=== PATIENT | male | born 1945 | race Caucasian/White ===

== ENCOUNTER 2025-03-27 04:36 | Inpatient (IN) | payer MEDICARE, SELFPAY ==
[2025-03-26] VITALS (7 sets, daily range): BP systolic 109–136; BP diastolic 48–65; BMI 29.5
--- NOTE | 2025-03-26 19:01 | ED.GENMED ---
History of Present Illness
<Marek Dudley PA-C - Last Filed: 03/28/25 18:14>
General
Chief Complaint: Weakness
Source: patient
Exam Limitations: none
Time Seen by Provider: 03/26/25 18:48
History of Present Illness
History of Present Illness:
79-year-old male presents complaining of generalized weakness and chills starting last night. He was admitted at [facility] from 02 28-03 08 and discharged to rehab. He was found to have significantly elevated liver functions at [facility] and was due for an ERCP. This was to be scheduled as an outpatient. He has been home since discharge from rehab however overnight he developed weakness and chills. He typically ambulates on his own without any assistance but today he has
required significant assistance. He notes a slight cough. Prior history of cholecystectomy. No other complaints
Phy Exam
<Marek Dudley PA-C - Last Filed: 03/28/25 18:14>
Physical Exam
Physical Exam:
General Ill-appearing male no acute respiratory distress HEENT: Normal cephalic atraumatic mucosa dry
Heart: Tachycardic but regular
Lungs: Clear no wheeze abdomen is soft nontender
Extremities: No cyanosis
Skin: Slightly pale or mildly jaundiced
Neurologic exam: Alert oriented answering questions appropriately no facial asymmetry
Ext: no cyanosis
Course
<Marek Dudley PA-C - Last Filed: 03/28/25 18:14>
Orders/Labs/Results
Orders:
Orders
03/26/25 18:26
Electrocardiogram (*1) Urgent
Reason for Study: Vertigo / Dizzy
EKG- Treatment ONCE
03/26/25 19:02
CR Chest Portable - 1 View Urgent
Comment:
Reason For Exam: fatigue fever
Reason Study Needs to be Portable: Patient Unstable
03/26/25 19:17
COVID-19 Antigen Urgent
Source: Nasal Swab
Complete Blood Count/With Diff Urgent
Comprehensive Metabolic Panel Urgent
Lactic Acid Q4H
Comment: CANCEL 2nd LACTIC ACID IF 1st LACTIC ACID IS LESS THAN 2
Lipase Urgent
Blood Culture Q30M
JANELLE Source: Blood/Venous
Specimen Description:
Influenza A+B Rapid Molecular Urgent
JANELLE Source: Nasal Swab
Specimen Description:
03/26/25 19:31
Piperacillin/Tazo 3.375 Gram [Zosyn] 3.375 gram in 50 ml IV NOW
03/26/25 20:14
Blood Culture Q30M
JANELLE Source: Blood/Venous
Specimen Description:
03/26/25 20:20
Acetaminophen [Tylenol] 1,000 mg PO NOW STA
03/26/25 20:23
0.9% Sodium Chloride 1000 ml [Nss] 1,000 ml IV BOLUS
03/26/25 21:27
Urinalysis Reflex To Culture Urgent
Date Specimen was Collected: 03/26/25
Time Specimen was Collected: 19:40
03/26/25 21:38
CT Abd/pelvis W Iv Cont Urgent
Comment:
Reason For Exam: pain, fever
03/27/25 01:16
Urine Microscopic Reflex Cult Urgent
03/27/25 04:09
Admit/Transfer Patient As Directed
Co-Sign Provider:
Level of Care: Inpatient admission
Assign to:: Medical/Surgical
Physician / Group: Raissa
Diagnosis: Fever
Reason for Hospitalization: fever with transaminitis
Expected length of stay greater than two midnights?: Yes
ELOS- Estimated Length of Stay in days: 2
I certify the patient meets the requirements for IP care: Yes
PRN Pain Medication Management As Directed
May give lesser potent ordered pain med per pt: Yes
preference::
Protocol:: Medication orders for pain may be administered in a
manner that supports deferring to patient preference
when the pt is:
- Requesting an ordered lesser potent pain medication.
Least to most potent pain medications are defined
as: acetaminophen < NSAID < tramadol < opioids
(morphine, oxycodone, hydromorphone).
- Requesting a lesser dose of the same medication IF
ORDERED.
- Requesting a less intrusive route of administration
if both routes are prescribed by the provider (PO <
IV).
03/27/25 04:10
Code Status As Directed
Resuscitation Status: Full Code
03/27/25 04:21
Piperacillin/Tazo 3.375 Gram [Zosyn] 3.375 gram in 50 ml IV NOW
03/27/25 Breakfast
NPO
Allow oral meds: Yes
Allow clear liquids: Sips of Clears
03/27/25 06:03
Acetaminophen [Tylenol] 650 mg PO Q4HPRN PRN
Bisacodyl [Dulcolax] 10 mg RECTAL [id number] PRN
Docusate W/Senna [Senokot-S] 1 tablet PO BIDPRN PRN
Lactated Ringers [Lr] 1,000 ml IV 75 mls/hr
Ondansetron Injectable [Zofran] 4 mg IV Q6HPRN PRN
Polyethylene Glycol Powder [Miralax] 17 grams PO DAILYPRN PRN
03/27/25 06:03
Activity As Directed
Activity Level: With Assistance
Vital Signs As Directed
Frequency: Per unit guidelines
Pulse Ox/spot Check [RESP] Routine
Quantity: 1
DX Deep Vein Thrombosis Video Routine
03/27/25 08:00
Aspirin Low Dose EC [Aspir Low (Enteric Coated)] 81 mg PO DAILY
Carvedilol [Coreg] 25 mg PO Q12H
Citalopram [Celexa] 20 mg PO DAILY
03/27/25 11:30
Piperacillin/Tazo 3.375 Gram [Zosyn] 3.375 gram in 50 ml IV Q6
03/27/25 18:00
Enoxaparin Sodium [Lovenox] 40 mg SC QPM
03/27/25 22:00
Trazodone [Desyrel] 100 mg PO HS
03/28/25 08:20
Basic Metabolic Panel IN AM
Complete Blood Count/No Diff IN AM
Magnesium IN AM
Abnormal Lab Results
03/26/25 03/27/25
19:17 01:16
RBC 3.67 L 10^6/uL
(4.70-6.10)
Hgb 12.6 L g/dL
(13.0-18.0)
Hct 37.4 L %
(39.0-52.0)
MCV 101.9 H fL
(80.0-94.0)
MCH 34.3 H pg
(27.0-31.0)
Absolute Lymphs (auto) 0.3 L 10^3/uL
(1.2-3.4)
Neutrophils % 89.4 H %
(42.2-75.2)
Lymphocytes % 4.1 L %
(20.5-51.1)
BUN 21 H mg/dl
(9-20)
Glucose 178 H mg/dl
(70-99)
Total Bilirubin 4.2 H mg/dl
(0.2-1.3)
AST 207 H U/L
(17-59)
ALT 129 H U/L
(0-50)
Alkaline Phosphatase 437 H U/L
(38-126)
Urine Bilirubin 1+ A
(Negative)
Urine Urobilinogen 3+ A
(Neg - 1+)
Urine Glucose 4+ A
(Negative)
Urine Albumin (Reflex) 1+ A
(Neg - Trace)
03/26/25 19:17
03/26/25 19:17
Vital Signs
Initial and Last Documented VS:
Initial Vital Signs
Temp Pulse Resp BP Pulse Ox
100.1 F 105 20 132/64 93
03/26/25 18:11 03/26/25 18:11 03/26/25 18:11 03/26/25 18:11 03/26/25 18:11
Last Documented Vital Signs
Temp Pulse Resp BP Pulse Ox
97.5 F 61 18 147/75 95
03/28/25 18:10 03/28/25 18:10 03/28/25 18:10 03/28/25 18:10 03/28/25 18:10
<Gabriela Recinos MD - Last Filed: 03/26/25 20:56>
Orders/Labs/Results
Orders:
Orders
03/26/25 18:26
Electrocardiogram (*1) Urgent
Reason for Study: Vertigo / Dizzy
EKG- Treatment ONCE
03/26/25 19:02
CR Chest Portable - 1 View Urgent
Comment:
Reason For Exam: fatigue fever
Reason Study Needs to be Portable: Patient Unstable
03/26/25 19:17
COVID-19 Antigen Urgent
Source: Nasal Swab
Complete Blood Count/With Diff Urgent
Comprehensive Metabolic Panel Urgent
Lactic Acid Q4H
Comment: CANCEL 2nd LACTIC ACID IF 1st LACTIC ACID IS LESS THAN 2
Lipase Urgent
Blood Culture Q30M
JANELLE Source: Blood/Venous
Specimen Description:
Influenza A+B Rapid Molecular Urgent
JANELLE Source: Nasal Swab
Specimen Description:
03/26/25 19:31
Piperacillin/Tazo 3.375 Gram [Zosyn] 3.375 gram in 50 ml IV NOW
03/26/25 20:14
Blood Culture Q30M
JANELLE Source: Blood/Venous
Specimen Description:
03/26/25 20:20
Acetaminophen [Tylenol] 1,000 mg PO NOW STA
03/26/25 20:23
0.9% Sodium Chloride 1000 ml [Nss] 1,000 ml IV BOLUS
03/26/25 21:27
Urinalysis Reflex To Culture Urgent
Date Specimen was Collected: 03/26/25
Time Specimen was Collected: 19:40
03/26/25 21:38
CT Abd/pelvis W Iv Cont Urgent
Comment:
Reason For Exam: pain, fever
03/27/25 01:16
Urine Microscopic Reflex Cult Urgent
03/27/25 04:09
Admit/Transfer Patient As Directed
Co-Sign Provider:
Level of Care: Inpatient admission
Assign to:: Medical/Surgical
Physician / Group: Saeidwysandra
Diagnosis: Fever
Reason for Hospitalization: fever with transaminitis
Expected length of stay greater than two midnights?: Yes
ELOS- Estimated Length of Stay in days: 2
I certify the patient meets the requirements for IP care: Yes
PRN Pain Medication Management As Directed
May give lesser potent ordered pain med per pt: Yes
preference::
Protocol:: Medication orders for pain may be administered in a
manner that supports deferring to patient preference
when the pt is:
- Requesting an ordered lesser potent pain medication.
Least to most potent pain medications are defined
as: acetaminophen < NSAID < tramadol < opioids
(morphine, oxycodone, hydromorphone).
- Requesting a lesser dose of the same medication IF
ORDERED.
- Requesting a less intrusive route of administration
if both routes are prescribed by the provider (PO <
IV).
03/27/25 04:10
Code Status As Directed
Resuscitation Status: Full Code
03/27/25 04:21
Piperacillin/Tazo 3.375 Gram [Zosyn] 3.375 gram in 50 ml IV NOW
03/27/25 Breakfast
NPO
Allow oral meds: Yes
Allow clear liquids: Sips of Clears
03/27/25 06:03
Acetaminophen [Tylenol] 650 mg PO Q4HPRN PRN
Bisacodyl [Dulcolax] 10 mg RECTAL [id number] PRN
Docusate W/Senna [Senokot-S] 1 tablet PO BIDPRN PRN
Lactated Ringers [Lr] 1,000 ml IV 75 mls/hr
Ondansetron Injectable [Zofran] 4 mg IV Q6HPRN PRN
Polyethylene Glycol Powder [Miralax] 17 grams PO DAILYPRN PRN
03/27/25 06:03
Activity As Directed
Activity Level: With Assistance
Vital Signs As Directed
Frequency: Per unit guidelines
Pulse Ox/spot Check [RESP] Routine
Quantity: 1
DX Deep Vein Thrombosis Video Routine
03/27/25 08:00
Aspirin Low Dose EC [Aspir Low (Enteric Coated)] 81 mg PO DAILY
Carvedilol [Coreg] 25 mg PO Q12H
Citalopram [Celexa] 20 mg PO DAILY
03/27/25 11:30
Piperacillin/Tazo 3.375 Gram [Zosyn] 3.375 gram in 50 ml IV Q6
03/27/25 18:00
Enoxaparin Sodium [Lovenox] 40 mg SC QPM
03/27/25 22:00
Trazodone [Desyrel] 100 mg PO HS
03/28/25 08:20
Basic Metabolic Panel IN AM
Complete Blood Count/No Diff IN AM
Magnesium IN AM
Abnormal Lab Results
03/26/25 03/27/25
19:17 01:16
RBC 3.67 L 10^6/uL
(4.70-6.10)
Hgb 12.6 L g/dL
(13.0-18.0)
Hct 37.4 L %
(39.0-52.0)
MCV 101.9 H fL
(80.0-94.0)
MCH 34.3 H pg
(27.0-31.0)
Absolute Lymphs (auto) 0.3 L 10^3/uL
(1.2-3.4)
Neutrophils % 89.4 H %
(42.2-75.2)
Lymphocytes % 4.1 L %
(20.5-51.1)
BUN 21 H mg/dl
(9-20)
Glucose 178 H mg/dl
(70-99)
Total Bilirubin 4.2 H mg/dl
(0.2-1.3)
AST 207 H U/L
(17-59)
ALT 129 H U/L
(0-50)
Alkaline Phosphatase 437 H U/L
(38-126)
Urine Bilirubin 1+ A
(Negative)
Urine Urobilinogen 3+ A
(Neg - 1+)
Urine Glucose 4+ A
(Negative)
Urine Albumin (Reflex) 1+ A
(Neg - Trace)
03/26/25 19:17
03/26/25 19:17
Vital Signs
Initial and Last Documented VS:
Initial Vital Signs
Temp Pulse Resp BP Pulse Ox
100.1 F 105 20 132/64 93
03/26/25 18:11 03/26/25 18:11 03/26/25 18:11 03/26/25 18:11 03/26/25 18:11
Last Documented Vital Signs
Temp Pulse Resp BP Pulse Ox
97.5 F 61 18 147/75 95
03/28/25 18:10 03/28/25 18:10 03/28/25 18:10 03/28/25 18:10 03/28/25 18:10
<Marek Dudley PA-C - Last Filed: 03/28/25 18:14>
MDM/Problems Addressed
Differential Diagnosis Includes:
Patient here with generalized weakness and chills. Oral temperature out from 100.1. Will check rectal temperature. Consider underlying infectious source. He has known issues with his biliary ducts and was due for an ERCP. Will obtain CT of the
abdomen chest x-ray COVID flu urinalysis blood cultures and lactic.
<Marek Dudley PA-C - Last Filed: 03/28/25 18:14>
*Pulse Oximetry
SaO2: 95
Oxygen Mode of Delivery: Room air
Patient hypoxic: no
*Critical Care Note
Total Time (30-74mins, 75-104mins- exclusive of procedures): Not Applicable
<Marek Dudley PA-C - Last Filed: 03/28/25 18:14>
Update Note
Update Note:
Chest x-ray, COVID, flu, urinalysis negative. CT reviewed demonstrates dilated intra and extrahepatic biliary ducts. 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 I spoke with our GI team, Dr. Jaime who recommend he gets transferred to ERCP
capable facility. I spoke with [facility] as well as hospitalist. The hospitalist was able to except the patient however there is no beds available at this moment. There will be any beds available overnight. Will
admit to this hospital
ED Attending Note
<Marek Dudley PA-C - Last Filed: 03/28/25 18:14>
-
Portions of this chart may have been created with voice recognition software.� Occasional wrong word or��sound alike� substitutions may have occurred due to the inherent limitations of voice recognition software.
<Gabriela Recinos MD - Last Filed: 03/26/25 20:56>
ED Attending Note
Patient seen and examined by attending physician: Yes
I performed the substantive portion of visit, reviewed & personally made and approve the management plan that is documented in note by myself or RONNY.: Yes
ED Attending Note:
79-year-old male presents emergency department with reported weakness generalized, looking more yellow than usual, and rigors. Patient had a recent hospitalization at [facility] at which time he was noted to have ductal dilatation and he was
recommended to have an ERCP but did not have 1. As per his family he has been generally weak since discharge but got acutely worse today. Patient denies abdominal pain, vomiting, chest pain, shortness of breath, urinary symptoms. On exam, patient
noted to be jaundiced and overall fatigued. Abdomen is soft and nontender, not actively vomiting. Heart regular rate and rhythm, no respiratory distress. Studies from [facility] reviewed, CAT scan from March 07 shows 'moderate intra and
extrahepatic biliary ductal dilatation and main pancreatic ductal dilatation without obstructing mass or calculus. Recommend evaluation with ERCP to rule out an occult ampullary mass.abx started with concern possibly ascending cholangitis (although
no abd pain), awaiting CT. bp stable.
Discharge Plan
Departure
Patient Disposition: Admit
Date of Disposition: 03/27/25
Time of Disposition: 03:15
Presentation/result/management discussed w/ accepting MD/DO: Hospitalist
Discharge Problem:
Fever
Interventions
Interventions:
*General Assessment Last Done: 03/26/25 20:00
*Neglect/Abuse Screening Last Done: 03/26/25 20:00
*ED COVID-19 Vaccine History Last Done: 03/26/25 20:00
*ED Influenza Vaccine History Last Done: 03/26/25 20:00
[facility] Fall Risk Assessment Tool Last Done: 03/27/25 08:00
*Risk Screen - Suicide (C-SSRS) Last Done: 03/26/25 20:00
*Nursing Disposition Last Done: 03/27/25 17:40
ED- Cardiac Assessment Last Done: 03/26/25 20:00
ED- Neurological Assessment Last Done: 03/26/25 20:00
ED- Pulmonary Assessment Last Done: 03/26/25 20:00
Discharge Date and Time
Discharge Date/Time: 03/27/25 17:30
[2025-03-26 19:35] LABS: Hematocrit 37.4 % (39.0-52.0); Hemoglobin 12.6 g/dL (13.0-18.0); Mean Corp Hgb Conc. 33.7 g/dL (33.0-37.0); Mean Corpuscular Volume 101.9 fL (80.0-94.0); Nucleated Red Blood Cells % 0 % (-); Platelet Count 226 10^3/uL (130-400); Red Cell Dist. Width 14.2 % (11.5-14.5)
[2025-03-26 19:56] LABS: COVID-19 Antigen Negative (Negative)
[2025-03-26 19:59] LABS: ALT (SGPT) 129 U/L (0-50); AST (SGOT) 207 U/L (17-59); Albumin 3.9 g/dl (3.5-5.0); Alkaline Phosphatase 437 U/L (38-126); Blood Urea Nitrogen 21 mg/dl (9-20); Calcium 9.5 mg/dl (8.4-10.2); Carbon Dioxide 24 mmol/L (22-30); Chloride 103 mmol/L (98-107); Estimated Creatinine Clearance 47 ml/min; Glucose 178 mg/dl (70-99); Lipase 269 U/L (23-300); Potassium 4.7 mmol/L (3.5-5.1); Sodium 136 mmol/L (135-145); Total Protein 6.5 g/dl (6.3-8.2); eGFR > 60.00
[2025-03-26] MEDS: ZOSYN 50 IV (20:15)
[2025-03-26] MEDS: TYLENOL 1000 MG PO (20:22)
[2025-03-26] MEDS: NSS 1000 IV (20:44)
[2025-03-27] VITALS (12 sets, daily range): BP systolic 101–121; BP diastolic 49–65; BMI 28.7
[2025-03-27 01:24] LABS: Urine Character Clear (Clear)
[2025-03-27 01:42] LABS: Urine Red Blood Cell 0-2 /HPF (0-2)
--- NOTE | 2025-03-27 03:21 | HPS.HSE ---
Addendum entered and electronically signed by Hui Haji MD 03/27/25 06:42:
Per discussion with Urology Dr. Bell:
It is unlikely that the stone contributes to his fever. He would still need to get a stent just in case but would not take him urgenly for that now when he is going to [place]. let [place] know they will need urology there to evaluate.
Original Note:
Family Physician
-
Family Physician: Darek Ferro
Chief Complaint
-
Weakness
History of Present Illness
79-year-old male with past medical history significant for insulin-dependent diabetes, nonischemic cardiomyopathy status post pacemaker AICD presenting with generalized weakness and chills starting last night. He was admitted at [facility] from 02 28-03 08 and discharged to rehab. He was found to have significantly elevated liver functions at [facility] and was due for an ERCP. This was to be scheduled as an outpatient. He has been home since discharge from rehab however
overnight he developed weakness and chills. He typically ambulates on his own without any assistance but today he has required significant assistance. He notes a slight cough. Prior history of cholecystectomy. No other complaints
Patient story is a little bit confabulatory. He does not know exactly why he was at [facility] on February 28. He said he fell and was only at [facility] for a short bit of time before going to rehab. He was unaware of abnormal LFTs. He was
aware of having a scan but he was not aware of abnormalities on his biliary system or recommendation to have an ERCP done. Patient stated that he has not had fevers. He denies having any nausea or vomiting, abdominal pain, diarrhea, changes to the
color of his stool urine or skin. He denies any itching. He denies history of gallstones but he says he has had a cholecystectomy. He does report a history of prior kidney stones.
Patient's daughter confirmed that the admission to [facility] for fall and weakness and subsequent rehab. She was aware of the abnormal LFT findings. She stated that few days ago she had a follow-up blood test which showed GGT that was elevated
to greater than 1000. His primary care physician made an appointment for Friday with gastroenterology. However due to development of weakness and decreased p.o. intake as well as shakes he was brought to the emergency department today.
On arrival in the emergency department he was febrile to 103.5. Rest of the vital signs remained relatively stable with a blood pressure of 107/52, pulse of 59 and oxygen saturation of 93% on room air. CBC shows a white count 6.9 with an of 10.6
and plate count 226. Electrolytes and BUN/creatinine were normal. Glucose was 178. Headache [facility], he had mild elevation in AST and ALT as well as elevation. 400. Lipase was normal. Chest x-ray shows no infiltrates there is elevation
of right hemidiaphragm. The CT scan of the abdomen pelvis again revealed He has status post colectomy, moderate bilateral intrahepatic biliary duct dilation, moderate dilation of the common bile duct to 15 mm difference likely at the ampulla, no
definitive common bile duct stones are seen. There is also mild dilation of the main pancreatic duct. He also has right-sided distal ureteral stone for 0.7 cm without hydronephrosis. UA without blood or infection.
This was discussed with Dr. Jaime of GI who felt possibility of obstruction secondary to an ampullary mass and patient to be transferred to a facility where he can be addressed with an ERCP promptly. This was discussed with [facility] who accepted the
patient for transfer but stated the patient cannot get a bed immediately and patient is stable to be admitted and observed here until bed availability in the next 24 hours.
Medical History
Past Medical History
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
Past Surgical History: Reports Appendectomy and Tonsilectomy
Social History
Tobacco: Non-smoker
Alcohol: Occasional
Drug: None
Personal:
Living: With Family
Employment: Retired
Family History
Family History: Not pertinent
Allergies / Home Medications
Allergies reflects when Allergies were last updated in [facility].
Home Medications with original date entered in [facility]
Allergy/Medication List:
Allergies
Allergy/AdvReac Type Severity Reaction Status Date / Time
Penicillins Allergy Unknown Unknown Verified 03/26/25 18:11
Home Medications
aspirin 81 mg tablet 81 mg PO DAILY 03/26/25
carvedilol 25 mg tablet 25 mg PO Q12H 03/26/25
cholecalciferol (vitamin D3) 50 mcg (2,000 unit) tablet (Vitamin D3) 50 mcg PO DAILY 03/26/25
citalopram 40 mg tablet 20 mg PO DAILY 03/26/25
dapagliflozin propanediol 10 mg tablet (Farxiga) 10 mg PO DAILY 03/26/25
fenofibrate 160 mg tablet 160 mg PO DAILY 03/26/25
insulin glargine 100 unit/mL subcutaneous solution (Lantus U-100 Insulin) 30 unit SC HS 03/26/25
metformin 1,000 mg tablet 1,000 mg PO BID 03/26/25
multivitamin with minerals-folic acid 80 mcg chewable tablet (Centrum MultiGummies Men) 1 tab PO DAILY 03/26/25
omega 7-ohv-qyv-fish oil 1,000 mg (120 mg-180 mg) capsule (Fish Oil) 1 cap PO DAILY 03/26/25
sacubitril 49 mg-valsartan 51 mg tablet (Entresto) 1 tab PO BID 03/26/25
trazodone 100 mg tablet 100 mg PO HS 03/26/25
Review of Systems
-
Constitutional: Reports No Symptoms
EENT: Reports No Symptoms
Respiratory: Reports No Symptoms
Cardiac: Reports No Symptoms
Abdomen/GI: Reports No Symptoms
: Reports No Symptoms
Musculoskeletal: Reports No Symptoms
Skin: Reports No Symptoms
Neurological: Reports No Symptoms
Endocrine: Reports No Symptoms
Hematologic/Lymphatic: Reports No Symptoms
Psych: Reports No Symptoms
Physical Exam
Vital Signs
Vital Signs
Temp Pulse Resp BP Pulse Ox
98.3 F 79 25 107/52 93
03/27/25 01:14 03/27/25 03:00 03/27/25 02:45 03/27/25 02:00 03/26/25 23:00
Physical Exam
General: Well Developed, Well Nourished and No Apparent Distress
HEENT: NormoCephalic, Moist mucous membranes and Atraumatic
Respiratory: Clear
Cardiac: S1/S2 and Regular Rhythm; No Murmur or Rub
GI: Soft, Non Distended and Normal Bowel Sounds; No Organomegaly
Rectal: Deferred by Provider
Genito-urinary: No costovertebral tender
Musculoskeletal: No Clubbing, No Cyanosis and No Edema
Skin: No Rash
Neuro: Awake, Alert, Oriented (oriented x 3) and Nonfocal/grossly intact
Psych: Calm
Laboratory Results
-
03/26/25 19:17
03/26/25 19:17
Laboratory Results
Lactic Acid Cancelled 03/26/25 23:15
Total Bilirubin 4.2 mg/dl (0.2-1.3) H 03/26/25 19:17
AST 207 U/L (17-59) H 03/26/25 19:17
ALT 129 U/L (0-50) H 03/26/25 19:17
Alkaline Phosphatase 437 U/L (38-126) H 03/26/25 19:17
Lipase 269 U/L (23-300) 03/26/25 19:17
Data Reviewed
-
CT Scan: Report Reviewed by me
Lab Data: Labs Reviewed by me
Old Records: Reviewed
Impression/Plan
-
IMPRESSION:
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 He does not have
leukocytosis. He does have elevated bilirubin. Patient was recently admitted to [facility] and was found to have elevated LFTs. At that time he had dilation of his biliary system and was recommended ERCP. Patient is status post cholecystectomy
and deferred ERCP ultimately was discharged to follow-up. Pending follow-up patient developed weakness and is unable to provide much history but a was shaking and was brought to the Emergency Department found to have a fever. He has a T. bili of
over 4, AST and ALT that were elevated. Was 400. Lipase was normal. CT scan shows dilation of the intrahepatic,, the common bile duct as well as the pancreatic duct. 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
Additional febrile workup including COVID, influenza, urinalysis, chest x-ray were negative.
PLAN:
Fever -suspected cholangitis but patient is without any abdominal pain. His fever improved with Tylenol and is now on antibiotics. Case was discussed with Dr. Jaime of GI recommends transfer to [facility] for ERCP due to concern for ampullary mass
causing an obstruction. Patient is accepted at [facility]. 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
� Admit to [facility]
� Patient is waiting the bed for ERCP, n.p.o. for now
� Pain control antipyretics
� Blood cultures have been sent
� Trend LFTs
� Continue Zosyn
� Will hold valsartan and sacubitril for now
� Maintenance fluids
� Accepted by Dr. Melendez under hospitalist service at [facility]
Right-sided urolithiasis�patient with a 0.7 cm right-sided distal ureteral stone. No hydronephrosis. No flank pain, no CVA tenderness. No dysuria frequency or urgency. UA is without blood, and shows no signs of active infection in the urine.
� Urine culture sent
� Will continue on Zosyn, tolerated first dose and the allergy is remote (family says the hx was when patient was an ).
� Start tamsulosin
� Without acute symptoms and no signs of urinary infection, and no indication for acute urological intervention but will consult urology for their evaluation
Diabetes�patient is on Lantus and metformin and Farxiga
� Hold Lantus, Farxiga and metformin
� Sliding scale insulin while n.p.o.
CHF�patient with recovered EF status post pacemaker AICD
� Continue carvedilol with hold parameters
� Hold Entresto
DVT ppx�lovenox subcu
CODE STATUS�full code
[2025-03-27] MEDS: ZOSYN 50 IV ×4 (04:51→23:32)
--- NOTE | 2025-03-27 05:04 | EDRN ---
penicillin allergy noted on chart. per pt's daughter, allergy was reported from pt's mother 'when he was a baby with unknown effects'
ED JAMEY ramirez, zosyn given and administered without reaction. Admitting Dr ramirez, pharmacy contacted.
Second dose of zosyn admin at approx 0445 without reaction
[2025-03-27 07:59] LABS: ALT (SGPT) 91 U/L (0-50); AST (SGOT) 102 U/L (17-59); Albumin 3.1 g/dl (3.5-5.0); Alkaline Phosphatase 268 U/L (38-126); GGTP 759 U/L (15-73); Total Protein 5.6 g/dl (6.3-8.2)
[2025-03-27] MEDS: COREG 25 MG PO ×2 (10:31→21:06)
[2025-03-27] MEDS: TYLENOL 650 MG PO (10:31)
[2025-03-27] MEDS: ASPIR LOW (ENTERIC COATED) 81 MG PO (10:31)
[2025-03-27] MEDS: NOVOLOG FLEXPEN-LOW RESISTANCE 1 UNITS SC (10:33)
[2025-03-27] MEDS: LR 1000 IV ×2 (10:34→21:08)
[2025-03-27] MEDS: CELEXA 20 MG PO (11:07)
--- NOTE | 2025-03-27 11:20 | W.PN.UPDATE ---
Addendum entered and electronically signed by Ceferino Roblero MD 03/27/25 14:20:
Per GI, okay for clears and NPO PMN.
Addendum entered and electronically signed by Ceferino Roblero MD 03/27/25 13:55:
Discussed patient case with Dr. Jaime and per Dr. Jaime, Dr. Millan can perform ERCP over here. Recommended to perform MRCP over here and GI team will see the patient. Per Dr. Jaime we can definitely perform ERCP procedure and Dr. Millan is available
to perform it. This was discussed with patient son in law and daughter at bedside who were really happy to hear it. Plan will be to obtain MRI with and without contrast. GI team will see the patient. [facility] transfer was canceled. Urologist was
also updated.
Original Note:
Update Note
Progress Note Update
Seen and examined independent of overnight physician. Currently resting in bed. Denies any abdominal pain. Denies any flank pain.
General: Well Developed, Well Nourished and No Apparent Distress
HEENT: NormoCephalic, Moist mucous membranes and Atraumatic
Respiratory: Clear
Cardiac: S1/S2 and Regular Rhythm; No Murmur or Rub
GI: Soft, Non Distended and Normal Bowel Sounds; No Organomegaly
Rectal: Deferred by Provider
Genito-urinary: No costovertebral tender
Musculoskeletal: No Clubbing, No Cyanosis and No Edema
Skin: No Rash
Neuro: Awake, Alert, Oriented (oriented x 3) and Nonfocal/grossly intact
Psych: Calm
IMPRESSION:
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 He does not have
leukocytosis. He does have elevated bilirubin. Patient was recently admitted to [facility] and was found to have elevated LFTs. At that time he had dilation of his biliary system and was recommended ERCP. Patient is status post cholecystectomy
and deferred ERCP ultimately was discharged to follow-up. Pending follow-up patient developed weakness and is unable to provide much history but a was shaking and was brought to the Emergency Department found to have a fever. He has a T. bili of
over 4, AST and ALT that were elevated. Was 400. Lipase was normal. CT scan shows dilation of the intrahepatic,, the common bile duct as well as the pancreatic duct. 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
Additional febrile workup including COVID, influenza, urinalysis, chest x-ray were negative.
PLAN:
Fever -suspected cholangitis but patient is without any abdominal pain. His fever improved with Tylenol and is now on antibiotics. Case was discussed with Dr. Jaime of GI recommends transfer to [facility] for ERCP due to concern for ampullary mass
causing an obstruction. Patient is accepted at [facility]. H&P citizenship teacher feels patient is stable and can with availability of bed then go for ERCP.
� Patient is waiting the bed for ERCP, n.p.o. for now
� Pain control antipyretics
� Blood cultures have been sent
� Trend LFTs
� Continue Zosyn
� Will hold valsartan and sacubitril for now
� Maintenance fluids
� Accepted by Dr. Melendez under hospitalist service at [facility]
Right-sided urolithiasis�patient with a 0.7 cm right-sided distal ureteral stone. No hydronephrosis. No flank pain, no CVA tenderness. No dysuria frequency or urgency. UA is without blood, and shows no signs of active infection in the urine.
� Urine culture sent
� Will continue on Zosyn, tolerated first dose and the allergy is remote (family says the hx was when patient was an ).
� Start tamsulosin
� Per Urology Dr. Bell: It is unlikely that the stone contributes to his fever. He would still need to get a stent just in case but would not take him urgently for that now when he is going to [place]. let [facility] know they will need urology there
to evaluate.
Diabetes�patient is on Lantus and metformin and Farxiga
� Hold Lantus, Farxiga and metformin
� Sliding scale insulin while n.p.o.
CHF�patient with recovered EF status post pacemaker AICD
� Continue carvedilol with hold parameters
� Hold Entresto
DVT ppx�lovenox subcu
CODE STATUS�full code
--- NOTE | 2025-03-27 14:33 | CONS.URO ---
Consultation
-
Date/Time Consultation Performed: 03/27/25 1430
Performing Provider: Peffer
Reason for Consultation: Ureteral stone
Medical History
History of Present Illness
79-year-old male with past medical history significant for insulin-dependent diabetes, nonischemic cardiomyopathy status post pacemaker AICD
Long history of kidney stones followed by Dr. Pyle last 4-5 years ago
Has always been able to pass his kidney stones spontaneously
Presenting with generalized weakness and chills starting last night. He was admitted at [facility] 02 28-12 2 and discharged to rehab. He was found to have significantly elevated liver enzymes at [facility] and was due for an ERCP.
This was to be scheduled as an outpatient. He has been home since discharge from rehab however overnight he developed weakness and chills. He typically ambulates on his own without any assistance but today he has required significant assistance.
He notes a slight cough. Prior history of cholecystectomy. No other complaints
Denies flank pain
Denies hematuria
Denies symptoms consistent with past kidney stones
On arrival in the emergency department he was febrile to 103.5. Rest of the vital signs remained relatively stable and no leukocytosis.
Electrolytes and BUN/creatinine were normal
The CT scan of the abdomen pelvis again revealed He has status post colectomy, moderate bilateral intrahepatic biliary duct dilation, moderate dilation of the common bile duct to 15 mm difference likely at the ampulla, no definitive common bile duct
stones are seen. There is also mild dilation of the main pancreatic duct. He also has right-sided distal ureteral stone for 0.7 cm without hydronephrosis. UA without blood or infection.
He is being admitted for ERCP with GI
Urology consulted for eval of ureteral stone in setting of fevers
Past Medical History
Past Medical History: Kidney stones, Reports CHF Heart failure with depressed EF status post AICD pacemaker, status post recovery of EF
Past Surgical History: Appendectomy and Tonsillectomy
Social History
Tobacco: Non-smoker
Alcohol: Occasional
Drug: None
Personal:
Living: With Family
Employment: Retired
Allergies/Home Medications
Allergies
Allergy/AdvReac Type Severity Reaction Status Date / Time
Penicillins Allergy Unknown Unknown Verified 03/26/25 18:11
Home Medications
�Medication �Instructions �Recorded �Confirmed �Type
aspirin 81 mg tablet 81 mg PO DAILY 03/26/25 03/26/25 History
carvedilol 25 mg tablet 25 mg PO Q12H 03/26/25 03/26/25 History
cholecalciferol (vitamin D3) 50 50 mcg PO DAILY 03/26/25 03/26/25 History
mcg (2,000 unit) tablet (Vitamin
D3)
citalopram 40 mg tablet 20 mg PO DAILY 03/26/25 03/26/25 History
dapagliflozin propanediol 10 mg 10 mg PO DAILY 03/26/25 03/26/25 History
tablet (Farxiga)
fenofibrate 160 mg tablet 160 mg PO DAILY 03/26/25 03/26/25 History
insulin glargine 100 unit/mL 30 unit SC HS 03/26/25 03/26/25 History
subcutaneous solution (Lantus
U-100 Insulin)
metformin 1,000 mg tablet 1,000 mg PO BID 03/26/25 03/26/25 History
multivitamin with minerals-folic 1 tab PO DAILY 03/26/25 03/26/25 History
acid 80 mcg chewable tablet
(Centrum MultiGummies Men)
omega 2-dmf-avx-fish oil 1,000 mg 1 cap PO DAILY 03/26/25 03/26/25 History
(120 mg-180 mg) capsule (Fish Oil)
sacubitril 49 mg-valsartan 51 mg 1 tab PO BID 03/26/25 03/26/25 History
tablet (Entresto)
trazodone 100 mg tablet 100 mg PO HS 03/26/25 03/26/25 History
Physical Exam
Vital Signs
Vital Signs
Temp Pulse Resp BP Pulse Ox
98.0 F 71 17 117/61 93
03/27/25 06:53 03/27/25 06:45 03/27/25 06:45 03/27/25 06:00 03/26/25 23:00
Lab / Testing Results
Laboratory Results
03/26/25 19:17
03/26/25 19:17
Physical Exam
General: Well Developed, Well Nourished, No Apparent Distress and Other (mild jaundice)
Respiratory: Clear and Non Labored Respirations
GI: Soft and Non Tender
Genito-urinary: No Costovertebral Tend and Clear Urine
Neuro: AO x 3
Psych: Calm and Intact Judgement
Assessment / Plan
-
79M admitted with fever likely due to biliary obstruction and cholangitis
Urology consulted for incidentally noted 7mm R distal ureteral stone
- Given lack of flank pain, hematuria, UTI symptoms, any symptoms consistent with patients prior kidney stones, lack of hydronephrosis on CT, and normal UA, it is very unlikely that patient's ureteral stone contributes to acute infection/fever
- Per family, this stone was also incidentally noted at [place] last month and has not been symptomatic since then
- No indication for acute intervention at this time and can plan for outpatient procedure after discharge if this stone doesn't pass spontaneously
- If infection parameters not responding appropriately to GI intervention, would reconsider placement of ureteral stent this admission
--- NOTE | 2025-03-27 15:27 | CM ---
Chart reviewed and spoke with pt at ED bedside
He was in [facility] recently and dc with home care
Pt does not remember the name of agency
Lives in [address] [place] with son and grandson 1 URI
Independent with ADLs and ambulation
no DME
PCP Darek Ferro
[facility] in [place]
active with [facility] but does not remember the name
no hx of SNF
DCP is to go home with [facility]
CM will continue to follow up for dcp needs
[2025-03-27] MEDS: NOVOLOG FLEXPEN-LOW RESISTANCE SC ×2 (17:38→17:39)
[2025-03-27] MEDS: LOVENOX 40 MG SC (17:39)
[2025-03-27] MEDS: DESYREL 100 MG PO (21:05)
[2025-03-27 21:17] LABS: Glucose - Point of Care 138 mg/dl (70-99)
[2025-03-28] VITALS (10 sets, daily range): BP systolic 127–154; BP diastolic 51–75
[2025-03-28] MEDS: ZOSYN 50 IV ×4 (05:13→23:43)
[2025-03-28 05:52] LABS: Glucose - Point of Care 117 mg/dl (70-99)
--- NOTE | 2025-03-28 06:38 | CON.GI ---
Addendum entered and electronically signed by Milan Jaime DO 03/28/25 08:25:
I saw and examined the patient.
The BUSINESS CENTER REPRESENTATIVE's note was reviewed and I agree with the note.
Comment: Agree with the detailed note below. Plan for both EUS/ERCP today, 03/28/25 for further evaluation to r/o an occult ampullary lesion given his previous double-duct sign on prior MRI at OSH along with biliary decompression given concern for
biliary sepsis/cholangitis. Fortunately, he is improving on IV antibiotics and can hold off on MRI/MRCP. Further recommendations to be forthcoming pending eventual EUS/ERCP with Dr. Millan. Rest of care as outlined below.
GI will continue to follow.
Original Note:
Consultation
-
Date/Time Consultation Requested: 03/27/25 1340
Date/Time Consultation Performed: 03/28/25 0630
Requesting Provider: Ceferino Garcia MD
Performing Provider: YUMI White, Milan Jaime DO
Reason for Consultation: increased LFT's
Medical History
Chief Complaint / HPI
Chief Complaint: fever, weakness
History of Present Illness:
Pt is a 79yo with hx HFrEF with prior AICD/pacer, non ischemic CM, NIDDM, renal stones, prior appe with recent admission to [facility] with weakness increased LFT's. During admission noted with multiple imaging studies including MRI with moderate
intra and extrahepatic biliary ductal dilation and main pancreatic ductal dilation without obstructing mass or calculi recommended ERCP to rule out ampullary mass. Pt was due for OP office visit 03/[address] Witt to discuss ERCP. He
developed fever 103.5 and weakness with now admission to [place]. On admission noted with bili 2.4, d bili 1.7, GGT 759, AST 102, ALT 91, alk phos 268, albumin 3.1, WBC 6.9, hbg 12.6., platelets 226. CT completed with prior christine and mild
prominence of bile duct with CBD 1.4 cm as well as mild dilation of the main pancreatic duct measuring up to 6 mm in the pancreatic head. No definite lesion is identified. Consider MRCP for further evaluation and correlation with lab values to
exclude obstruction. Also noted 7 mm stone distal ureter with hydro and small b/l non obstructing stones, diverticulosis.
In review with patient he admits to fever and weakness with recent fall. He has been eating but states wt loss of ab out 15 lbs with recent admission. He also notes some change in stool color but denies odynophagia, dysphagia, GERD, nausea,
vomiting, abdominal pain, diarrhea, constipation, dark urine, blood or black in stools. No prior EGD and hx colonoscopy several years ago. Pt denies anticoagulation and admits to NSAID use every several days.
03/08/25- ([facility])bili 1.9,. AST 98, ALT 84, alk phos 45, WBC 6.1, hbg 11.1, hct 32, platelets 291
03/07/25 CT A/P without contrast ( [facility])- non obstructing upper urinary tract calculi
02/28/25- CT cervical spine ([facility]) no acute fracture or subluxation, 1.9cm solid left thyroid nodule
02/28/25- HCT ([facility]) no acute abnormality
03/07/25 MRI with and without ([facility])- moderate intra and extrahepatic biliary ductal dilation and main pancreatic ductal dilation without obstructing mass or calculi recommended ERCP to rule out ampullary mass
03/26/25 CT a/p completed with prior christine and mild prominence of bile duct with CBD 1.4 cm as well as mild dilation of the main pancreatic duct measuring up to 6 mm in the pancreatic head. No definite lesion is identified. Consider MRCP for
further evaluation and correlation with lab values to exclude obstruction. Also noted 7 mm stone distal ureter with hydro and small b/l non obstructing stones, diverticulosis.
Past Medical History
Past Medical History: CHF (HFrEF with AICD/pacer and recovery of EF), NIDDM and Other (non ischemic CM, renal stones )
Past Surgical History: Appendectomy, Cardiac (AICD/pacer) and Tonsilectomy
Social History
Tobacco: Non-Smoker
Alcohol: Occasional (rare social )
Drug: None
Personal:
Living: With Family
Employment: Retired
Family History
Family History: Other (no family hx colon CA or polyps)
Allergies / Home Medications
Allergy/AdvReac Type Severity Reaction Status Date / Time
Penicillins Allergy Unknown Unknown Verified 03/26/25 18:11
�Medication �Instructions �Recorded
aspirin 81 mg tablet 81 mg PO DAILY 03/26/25
carvedilol 25 mg tablet 25 mg PO Q12H 03/26/25
cholecalciferol (vitamin D3) 50 50 mcg PO DAILY 03/26/25
mcg (2,000 unit) tablet (Vitamin
D3)
citalopram 40 mg tablet 20 mg PO DAILY 03/26/25
dapagliflozin propanediol 10 mg 10 mg PO DAILY 03/26/25
tablet (Farxiga)
fenofibrate 160 mg tablet 160 mg PO DAILY 03/26/25
insulin glargine 100 unit/mL 30 unit SC HS 03/26/25
subcutaneous solution (Lantus
U-100 Insulin)
metformin 1,000 mg tablet 1,000 mg PO BID 03/26/25
multivitamin with minerals-folic 1 tab PO DAILY 03/26/25
acid 80 mcg chewable tablet
(Centrum MultiGummies Men)
omega 8-vrd-rjo-fish oil 1,000 mg 1 cap PO DAILY 03/26/25
(120 mg-180 mg) capsule (Fish Oil)
sacubitril 49 mg-valsartan 51 mg 1 tab PO BID 03/26/25
tablet (Entresto)
trazodone 100 mg tablet 100 mg PO HS 03/26/25
Review of Systems
-
History Source: Patient
Constitutional: Reports Fever, Weight Loss and Fatigue
EENT: Reports No Symptoms
Respiratory: Reports No Symptoms
Cardiac: Reports No Symptoms
Abdomen/GI: Reports Other (change in stool color )
: Reports No Symptoms
Musculoskeletal: Reports No Symptoms
Neurological: Reports Weakness
Endocrine: Reports No Symptoms
Hematologic/Lymphatic: Reports No Symptoms
Vital Signs
Temp Pulse Resp BP Pulse Ox
97.7 F 61 18 140/64 94
03/28/25 03:10 03/28/25 03:10 03/28/25 03:10 03/28/25 03:10 03/28/25 03:10
Physical Exam
Exam
General: Well Developed, Well Nourished and No Apparent Distress
HEENT: Normocephalic and Other (minimal jaundice )
Respiratory: Clear
Cardiac: Regular Rhythm
GI: Soft, Non Tender and Non Distended
Musculoskeletal: No Clubbing and No Cyanosis
Skin: Warm and Dry
Neuro: Awake, Alert and AO x 3
Psych: Calm
Results
WBC 6.9 10^3/uL (4.8-10.8) 03/26/25 19:17
Hgb 12.6 g/dL (13.0-18.0) L 03/26/25 19:17
Hct 37.4 % (39.0-52.0) L 03/26/25 19:17
MCV 101.9 fL (80.0-94.0) H 03/26/25 19:17
Plt Count 226 10^3/uL (130-400) 03/26/25 19:17
Absolute Neuts (auto) 6.2 10^3/uL (1.4-6.5) 03/26/25 19:17
Sodium 136 mmol/L (135-145) 03/26/25 19:17
Potassium 4.7 mmol/L (3.5-5.1) 03/26/25 19:17
Chloride 103 mmol/L (98-107) 03/26/25 19:17
Carbon Dioxide 24 mmol/L (22-30) 03/26/25 19:17
BUN 21 mg/dl (9-20) H 03/26/25 19:17
Creatinine 1.2 mg/dL (0.7-1.3) 03/26/25 19:17
Calcium 9.5 mg/dl (8.4-10.2) 03/26/25 19:17
Total Bilirubin 2.4 mg/dl (0.2-1.3) H 03/27/25 06:45
AST 102 U/L (17-59) H 03/27/25 06:45
ALT 91 U/L (0-50) H 03/27/25 06:45
Alkaline Phosphatase 268 U/L (38-126) H 03/27/25 06:45
Lipase 269 U/L (23-300) 03/26/25 19:17
Diagnostic Image Results:
03/08/25- ([facility])bili 1.9,. AST 98, ALT 84, alk phos 45, WBC 6.1, hbg 11.1, hct 32, platelets 291
03/07/25 CT A/P without contrast ( [facility])- non obstructing upper urinary tract calculi
02/28/25- CT cervical spine ([facility]) no acute fracture or subluxation, 1.9cm solid left thyroid nodule
02/28/25- HCT ([facility]) no acute abnormality
03/07/25 MRI with and without ([facility])- moderate intra and extrahepatic biliary ductal dilation and main pancreatic ductal dilation without obstructing mass or calculi recommended ERCP to rule out ampullary mass
03/26/25 CT a/p completed with prior christine and mild prominence of bile duct with CBD 1.4 cm as well as mild dilation of the main pancreatic duct measuring up to 6 mm in the pancreatic head. No definite lesion is identified. Consider MRCP for
further evaluation and correlation with lab values to exclude obstruction. Also noted 7 mm stone distal ureter with hydro and small b/l non obstructing stones, diverticulosis.
Prior GI Procedures:
EGD: none
Colonoscopy: years ago
Assessment / Plan
-
Pt is a 79yo with hx HFrEF with prior AICD/pacer, non ischemic CM, NIDDM, renal stones, prior appe with recent admission to [facility] with weakness increased LFT's. During admission noted with multiple imaging studies including MRI with moderate
intra and extrahepatic biliary ductal dilation and main pancreatic ductal dilation without obstructing mass or calculi recommended ERCP to rule out ampullary mass. Pt was due for OP office visit 03/[address] Witt to discuss ERCP. He
developed fever 103.5 and weakness with now admission to [place]. On admission noted with bili 2.4, d bili 1.7, GGT 759, AST 102, ALT 91, alk phos 268, albumin 3.1, WBC 6.9, hbg 12.6., platelets 226. CT completed with prior christine and mild
prominence of bile duct with CBD 1.4 cm as well as mild dilation of the main pancreatic duct measuring up to 6 mm in the pancreatic head. No definite lesion is identified. Consider MRCP for further evaluation and correlation with lab values to
exclude obstruction. Also noted 7 mm stone distal ureter with hydro and small b/l non obstructing stones, diverticulosis.
03/08/25- ([facility])bili 1.9,. AST 98, ALT 84, alk phos 45, WBC 6.1, hbg 11.1, hct 32, platelets 291
03/07/25 CT A/P without contrast ( [facility])- non obstructing upper urinary tract calculi
02/28/25- CT cervical spine ([facility]) no acute fracture or subluxation, 1.9cm solid left thyroid nodule
02/28/25- HCT ([facility]) no acute abnormality
03/07/25 MRI with and without ([facility])- moderate intra and extrahepatic biliary ductal dilation and main pancreatic ductal dilation without obstructing mass or calculi recommended ERCP to rule out ampullary mass
03/26/25 CT a/p completed with prior christine and mild prominence of bile duct with CBD 1.4 cm as well as mild dilation of the main pancreatic duct measuring up to 6 mm in the pancreatic head. No definite lesion is identified. Consider MRCP for
further evaluation and correlation with lab values to exclude obstruction. Also noted 7 mm stone distal ureter with hydro and small b/l non obstructing stones, diverticulosis.
-fever
-increased LFT's
-recent MRI with concern for moderate intra and extrahepatic biliary ductal dilation and main pancreatic ductal dilation without obstructing mass or calculi recommended ERCP to rule out ampullary mass
-unintentional wt loss
-renal stones s/p urology eval
other med problems:
HFrEF with prior AICD/pacer, non ischemic CM, NIDDM, renal stones, prior appe
PLAN:
etiology of symptom with fever and LFT elevation with moderate intra and extrahepatic biliary ductal dilation and main pancreatic ductal dilation related to obstructive issue with mass, stone, stricture vs other
plan for EUS/ERCP today
trend labs
can hold MRI with recently completed study at [facility]
NPO
cont abx
reviewed risk/benefit of procedure with patient agreeable to proceed- offered to call family pt declined
s/p urology eval as noted
will hold Lovenox and add compressions stocking
-
-
Thank you for consultation and allowing me to participate in the patient's care. Please call the vehicle modification technician GI physician during the after hours with any questions or concerns.
[2025-03-28] MEDS: CELEXA 20 MG PO (08:57)
[2025-03-28] MEDS: LR 1000 IV (08:57)
[2025-03-28] MEDS: ASPIR LOW (ENTERIC COATED) 81 MG PO (08:57)
[2025-03-28] MEDS: COREG 25 MG PO ×2 (08:58→20:22)
--- NOTE | 2025-03-28 09:27 | W.PN.HOSP.TC ---
Today's Communication/Plan
-
.
Assessment / Plan
Assessment / Plan
Physical Exam
General: Well Developed, Well Nourished and No Apparent Distress
HEENT: NormoCephalic, Moist mucous membranes and Atraumatic
Respiratory: Clear
Cardiac: S1/S2 and Regular Rhythm; No Murmur or Rub
GI: Soft, Non Distended and Normal Bowel Sounds; No Organomegaly
Rectal: No bleeding.
Genito-urinary: No costovertebral tender
Musculoskeletal: No Clubbing, No Cyanosis and No Edema
Skin: No Rash
Neuro: Awake, Alert, Oriented (oriented x 3) and Nonfocal/grossly intact
Psych: Calm
# Acute biliary sepsis/cholangitis POA with fever - without any abdominal pain.
c/w IV Abx
Bilirubin is coming down
Afebrile
No hypotension
Blood culture is NGTD
Plan for ERCP today
Appreciate GI help
#Right-sided urolithiasis�patient with a 0.7 cm right-sided distal ureteral stone. No hydronephrosis. No flank pain, no CVA tenderness. No dysuria frequency or urgency. UA is without blood, and shows no signs of active infection in the urine.
Per urology:
Given lack of flank pain, hematuria, UTI symptoms, any symptoms consistent with patients prior kidney stones, lack of hydronephrosis on CT, and normal UA, it is very unlikely that patient's ureteral stone contributes to acute infection/fever
- Per family, this stone was also incidentally noted at [place] last month and has not been symptomatic since then
- No indication for acute intervention at this time and can plan for outpatient procedure after discharge if this stone doesn't pass spontaneously
#Diabetes�patient is on Lantus and metformin and Farxiga
� Hold Lantus, Farxiga and metformin
� Sliding scale insulin while n.p.o.
# Chronic HFpEF. patient with recovered EF status post pacemaker AICD
� Continue carvedilol with hold parameters
� Hold Entresto
DVT ppx�lovenox subcu
CODE STATUS�full code
Total time spent to see the patient, examine the patient, review data and lab results, discuss treatment plan with patient,GI doctor, nursing staff around 57 minutes
Anticipated Discharge: > 48 hours
Subjective/Interval History
-
Date of Service: March 28, 2025
No chest pain
Objective Data
-
Labs:
Laboratory Results
03/28/25
08:20
WBC Pending
Hgb Pending
Hct Pending
Plt Count Pending
PT Pending
INR Pending
Sodium Pending
Potassium Pending
Chloride Pending
Carbon Dioxide Pending
BUN Pending
Creatinine Pending
Glucose Pending
Calcium Pending
Vital Signs:
Vital Signs
Temp Pulse Resp BP Pulse Ox
98.1 F 61 18 138/64 98
03/28/25 07:25 03/28/25 08:58 03/28/25 07:25 03/28/25 08:58 03/28/25 07:25
I&O
03/27/25 03/28/25 03/29/25
06:59 06:59 06:59
Intake Total 240 / 240
Balance 240 / 240
[2025-03-28 09:37] LABS: Hematocrit 31.0 % (39.0-52.0); Hemoglobin 10.4 g/dL (13.0-18.0); Mean Corp Hgb Conc. 33.5 g/dL (33.0-37.0); Mean Corpuscular Volume 102.0 fL (80.0-94.0); Platelet Count 216 10^3/uL (130-400); Red Cell Dist. Width 14.4 % (11.5-14.5)
[2025-03-28 09:43] LABS: INR 1.26; PT 16.0 Sec (11.4-14.6)
[2025-03-28 10:26] LABS: Blood Urea Nitrogen 20 mg/dl (9-20); Calcium 8.6 mg/dl (8.4-10.2); Carbon Dioxide 26 mmol/L (22-30); Chloride 105 mmol/L (98-107); Estimated Creatinine Clearance 51 ml/min; Glucose 106 mg/dl (70-99); Magnesium 1.9 mg/dl (1.6-2.3); Potassium 4.4 mmol/L (3.5-5.1); Sodium 135 mmol/L (135-145); eGFR > 60.00
[2025-03-28 12:28] LABS: Glucose - Point of Care 103 mg/dl (70-99)
[2025-03-28 16:17] LABS: Glucose - Point of Care 154 mg/dl (70-99)
[2025-03-28 21:13] LABS: Glucose - Point of Care 327 mg/dl (70-99)
[2025-03-28] MEDS: DESYREL 100 MG PO (21:45)
[2025-03-29] VITALS (7 sets, daily range): BP systolic 127–152; BP diastolic 62–75; PULSE 60–61; O2SAT 98
[2025-03-29] MEDS: ZOSYN 50 IV ×4 (05:21→23:03)
[2025-03-29 07:11] LABS: Hematocrit 33.9 % (39.0-52.0); Hemoglobin 11.2 g/dL (13.0-18.0); Mean Corp Hgb Conc. 33.0 g/dL (33.0-37.0); Mean Corpuscular Volume 100.3 fL (80.0-94.0); Platelet Count 252 10^3/uL (130-400); Red Cell Dist. Width 14.0 % (11.5-14.5)
[2025-03-29 07:46] LABS: Glucose - Point of Care 217 mg/dl (70-99)
[2025-03-29 07:50] LABS: ALT (SGPT) 51 U/L (0-50); AST (SGOT) 30 U/L (17-59); Albumin 3.0 g/dl (3.5-5.0); Alkaline Phosphatase 220 U/L (38-126); Blood Urea Nitrogen 27 mg/dl (9-20); Calcium 8.2 mg/dl (8.4-10.2); Carbon Dioxide 22 mmol/L (22-30); Chloride 103 mmol/L (98-107); Estimated Creatinine Clearance 43 ml/min; Glucose 226 mg/dl (70-99); Potassium 5.0 mmol/L (3.5-5.1); Sodium 133 mmol/L (135-145); Total Protein 5.4 g/dl (6.3-8.2); eGFR 55.88
--- NOTE | 2025-03-29 08:10 | W.PN.GI.CBS2 ---
Addendum entered and electronically signed by Selin Arauz MD 03/29/25 13:28:
I saw and examined the patient.
The [employer]OFESSION[employer]'s note was reviewed and I agree with the note.
Comment: Choledocholithiasis with probable cholangitis status post EUS and ERCP 03/28/[address] Millan. 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 He is doing really
well with no further abdominal pain, is afebrile, LFTs are trending down. Will advance diet. Discussed with daughter Alejandrina over the telephone regarding the findings. Follow-up with Dr. Millan in 6 weeks. Daughter was requesting if patient can be
evaluated by PT to see if he needs rehab.
GI will sign off and will be available as needed
Original Note:
Today's Communication / Plan
-
s/p EUS/ERCP as noted with stone and ampullary lesion with biopsy pending
feeling well post procedure
will advance diet
LFT's improved
OP follow up with Dr. Millan 6 weeks
cont abx to complete course
daughter updated-- asking for PT eval as noted weakness and she is unsure if pt need to return to rehab, advised to review with case management when she visits today
Assessment / Plan
-
Pt is a 79yo with hx HFrEF with prior AICD/pacer, non ischemic CM, NIDDM, renal stones, prior appe with recent admission to [facility] with weakness increased LFT's. During admission noted with multiple imaging studies including MRI with moderate
intra and extrahepatic biliary ductal dilation and main pancreatic ductal dilation without obstructing mass or calculi recommended ERCP to rule out ampullary mass. Pt was due for OP office visit 03/[address] Witt to discuss ERCP. He
developed fever 103.5 and weakness with now admission to [facility]. On admission noted with bili 2.4, d bili 1.7, GGT 759, AST 102, ALT 91, alk phos 268, albumin 3.1, WBC 6.9, hbg 12.6., platelets 226. CT completed with prior christine and mild
prominence of bile duct with CBD 1.4 cm as well as mild dilation of the main pancreatic duct measuring up to 6 mm in the pancreatic head. No definite lesion is identified. Consider MRCP for further evaluation and correlation with lab values to
exclude obstruction. Also noted 7 mm stone distal ureter with hydro and small b/l non obstructing stones, diverticulosis.
Laboratory Tests
03/26/25 03/27/25 03/29/25
19:17 06:45 06:48
Total Bilirubin 4.2 H 2.4 H 1.4 H D
Direct Bilirubin 1.7 H
AST 207 H 102 H 30
ALT 129 H 91 H 51 H
Alkaline Phosphatase 437 H 268 H 220 H
03/08/25- ([facility])bili 1.9,. AST 98, ALT 84, alk phos 45, WBC 6.1, hbg 11.1, hct 32, platelets 291
03/07/25 CT A/P without contrast ( [facility])- non obstructing upper urinary tract calculi
02/28/25- CT cervical spine ([facility] no acute fracture or subluxation, 1.9cm solid left thyroid nodule
02/28/25- HCT ([facility]) no acute abnormality
03/07/25 MRI with and without ([facility] moderate intra and extrahepatic biliary ductal dilation and main pancreatic ductal dilation without obstructing mass or calculi recommended ERCP to rule out ampullary mass
03/26/25 CT a/p completed with prior christine and mild prominence of bile duct with CBD 1.4 cm as well as mild dilation of the main pancreatic duct measuring up to 6 mm in the pancreatic head. No definite lesion is identified. Consider MRCP for
further evaluation and correlation with lab values to exclude obstruction. Also noted 7 mm stone distal ureter with hydro and small b/l non obstructing stones, diverticulosis.
03/28/25- [facility] EUS normal esophagus, stomach papule, dilation CBD, sludge CBD, panc parechymal abnormality, mass lesion in ampulla distal bile duct, no liver pathology
03/28/25 - [facility] ERCP papilla bulging and enlarged, adjacent diverticulum bx tapen, stone/sludge seen, CBD mod dilation, choledocholithiasis, schincterotomy and balloon extraction, stent placed hepatic duct
-s/p ERCP with choledocholithiasis, ampullary mass
-fever- resolving
-increased LFT's
-recent MRI with concern for moderate intra and extrahepatic biliary ductal dilation and main pancreatic ductal dilation without obstructing mass or calculi recommended ERCP to rule out ampullary mass
-unintentional wt loss
-renal stones s/p urology eval
other med problems:
HFrEF with prior AICD/pacer, non ischemic CM, NIDDM, renal stones, prior appe
PLAN:
s/p EUS/ERCP as noted with stone and ampullary lesion with biopsy pending
feeling well post procedure
will advance diet
LFT's improved
OP follow up with Dr. Millan 6 weeks
cont abx to complete course
daughter updated-- asking for PT eval as noted weakness and she is unsure if pt need to return to rehab, advised to review with case management when she visits today
Subjective
Subjective
Date of Service: March 29, 2025
pt feeling well post procedure, asking for increased diet, tolerating clears no abdominal pain
Objective
Data Reviewed
Laboratory Data:
Laboratory Results
03/29/25 06:48
03/29/25 06:48
Laboratory Results
PT 16.0 Sec (11.4-14.6) H 03/28/25 08:20
INR 1.26 03/28/25 08:20
Magnesium 1.9 mg/dl (1.6-2.3) 03/28/25 08:20
Total Bilirubin 1.4 mg/dl (0.2-1.3) H D 03/29/25 06:48
AST 30 U/L (17-59) 03/29/25 06:48
ALT 51 U/L (0-50) H 03/29/25 06:48
Alkaline Phosphatase 220 U/L (38-126) H 03/29/25 06:48
Lipase 269 U/L (23-300) 03/26/25 19:17
Vital Signs and I&O:
Vital Signs
Temp Pulse Resp BP Pulse Ox
97.3 F 61 18 136/68 96
03/28/25 23:40 03/28/25 23:40 03/28/25 23:40 03/28/25 23:40 03/28/25 23:40
I&O
03/28/25 03/29/25 03/30/25
06:59 06:59 06:59
Intake Total 240 / 240 630 / 630
Balance 240 / 240 630 / 630
Physical Exam
Physical Exam
HEENT: Anicteric and Moist mucous membranes
Cardiology: Normal Sinus Rhythm
Pulmonary: Clear
GI: Soft, Non Distended and Non Tender
Extremities: No Edema
Neuro: Non Focal
[2025-03-29] MEDS: COREG 25 MG PO ×2 (08:28→19:32)
[2025-03-29] MEDS: CELEXA 20 MG PO (08:28)
[2025-03-29] MEDS: NOVOLOG FLEXPEN-LOW RESISTANCE 2 UNITS SC (08:28)
[2025-03-29] MEDS: ASPIR LOW (ENTERIC COATED) 81 MG PO (08:28)
[2025-03-29 11:58] LABS: Glucose - Point of Care 255 mg/dl (70-99)
[2025-03-29] MEDS: NOVOLOG FLEXPEN-LOW RESISTANCE 3 UNITS SC (12:18)
[2025-03-29] MEDS: GLUCOPHAGE 1000 MG PO (12:59)
--- NOTE | 2025-03-29 14:12 | W.PN.HOSP.TC ---
Today's Communication/Plan
-
hope to discharge in am
Assessment / Plan
Assessment / Plan
Physical Exam
General: Well Developed, Well Nourished and No Apparent Distress
HEENT: NormoCephalic, Moist mucous membranes and Atraumatic
Respiratory: Clear
Cardiac: S1/S2 and Regular Rhythm; No Murmur or Rub
GI: Soft, Non Distended, obese and Normal Bowel Sounds;
Rectal: No bleeding.
Genito-urinary: No costovertebral tender
Musculoskeletal: No Clubbing, No Cyanosis and No Edema
Skin: No Rash
Neuro: Awake, Alert, Oriented (oriented x 3) and Nonfocal/grossly intact
Psych: Calm
# Acute biliary sepsis/cholangitis POA with fever - without any abdominal pain.
c/w IV Abx for another 24 hours then change to oral.
Bilirubin is coming down
Afebrile
No hypotension
Blood culture is NGTD
- post EUS and ERCP 03/28/[address] Millan. 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 No abdominal pain, is afebrile, LFTs are trending down
Appreciate GI help
#Right-sided urolithiasis�patient with a 0.7 cm right-sided distal ureteral stone. No hydronephrosis. No flank pain, no CVA tenderness. No dysuria frequency or urgency. UA is without blood, and shows no signs of active infection in the urine.
Per urology:
Given lack of flank pain, hematuria, UTI symptoms, any symptoms consistent with patients prior kidney stones, lack of hydronephrosis on CT, and normal UA, it is very unlikely that patient's ureteral stone contributes to acute infection/fever
- Per family, this stone was also incidentally noted at [place] last month and has not been symptomatic since then
- No indication for acute intervention at this time and can plan for outpatient procedure after discharge if this stone doesn't pass spontaneously
#Diabetes�patient is on Lantus and metformin and Farxiga
Uncontrolled due to holding his medications
� Resume Lantus, Farxiga and metformin
� Sliding scale insulin while n.p.o.
# Chronic HFpEF. patient with recovered EF status post pacemaker AICD
� Continue carvedilol with hold parameters
� Resume Entresto
DVT ppx�lovenox subcu
CODE STATUS�full code
Had long discussion with family at bedside daughter Alejandrina and son-in-law Dameon. They were concerned about his discharge planning and failed to rehab at [place] after discharge from [facility]. Will continue IV antibiotic for
another 24 hours to avoid another relapse. Will do physical therapy with patient while in the hospital.
Total time spent to see the patient, examine the patient, review data and lab results, discuss treatment plan with patient and his family,GI doctor, nursing staff around 57 minutes
Anticipated Discharge: Within 24 hours
Subjective/Interval History
-
Date of Service: March 29, 2025
No chest pain
No sob
No abdominal pain
Objective Data
-
Labs:
Laboratory Results
03/29/25
06:48
WBC 6.9
Hgb 11.2 L
Hct 33.9 L
Plt Count 252
Sodium 133 L
Potassium 5.0
Chloride 103
Carbon Dioxide 22
BUN 27 H
Creatinine 1.3
Glucose 226 H
Calcium 8.2 L
Total Bilirubin 1.4 H D
AST 30
ALT 51 H
Alkaline Phosphatase 220 H
Vital Signs:
Vital Signs
Temp Pulse Resp BP Pulse Ox
97.7 F 61 20 152/71 98
03/29/25 07:30 03/29/25 08:28 03/29/25 07:30 03/29/25 08:28 03/29/25 07:30
I&O
03/28/25 03/29/25 03/30/25
06:59 06:59 06:59
Intake Total 240 / 240 630 / 630
Balance 240 / 240 630 / 630
[2025-03-29 16:52] LABS: Glucose - Point of Care 171 mg/dl (70-99)
--- NOTE | 2025-03-29 17:16 | CM ---
Anticipating DC in a.m. PT rec HH. [facility] Family agreed to resume care. ROS referral placed
Plan: HOme with [facility]. HH stated they would try to start services on Friday. Family made aware
[2025-03-29] MEDS: LANTUS 0.3 UNITS SC (17:17)
[2025-03-29] MEDS: NOVOLOG FLEXPEN-LOW RESISTANCE 1 UNITS SC (17:18)
[2025-03-29] MEDS: ENTRESTO 49 MG/51 MG 1 TAB PO (19:32)
[2025-03-29 21:15] LABS: Glucose - Point of Care 217 mg/dl (70-99)
[2025-03-29] MEDS: DESYREL 100 MG PO (21:18)
[2025-03-30] MEDS: ZOSYN 50 IV ×3 (05:04→20:49)
[2025-03-30 08:10] LABS: Glucose - Point of Care 116 mg/dl (70-99)
[2025-03-30 08:11] LABS: ALT (SGPT) 43 U/L (0-50); AST (SGOT) 33 U/L (17-59); Albumin 3.2 g/dl (3.5-5.0); Alkaline Phosphatase 227 U/L (38-126); Blood Urea Nitrogen 24 mg/dl (9-20); Calcium 8.8 mg/dl (8.4-10.2); Carbon Dioxide 27 mmol/L (22-30); Chloride 108 mmol/L (98-107); Estimated Creatinine Clearance 43 ml/min; Glucose 123 mg/dl (70-99); Potassium 4.4 mmol/L (3.5-5.1); Sodium 139 mmol/L (135-145); Total Protein 5.5 g/dl (6.3-8.2); eGFR 55.88
[2025-03-30] MEDS: NOVOLOG FLEXPEN-LOW RESISTANCE SC ×3 (08:24→17:04)
[2025-03-30 08:33] VITALS: BP 128/56
[2025-03-30] MEDS: CELEXA 20 MG PO (08:33)
[2025-03-30] MEDS: ENTRESTO 49 MG/51 MG 1 TAB PO ×2 (08:33→20:46)
[2025-03-30] MEDS: SENOKOT-S 1 TABLET PO (08:33)
[2025-03-30] MEDS: ASPIR LOW (ENTERIC COATED) 81 MG PO (08:33)
[2025-03-30] MEDS: GLUCOPHAGE 1000 MG PO ×2 (08:33→17:33)
[2025-03-30] MEDS: FARXIGA 10 MG PO (08:33)
[2025-03-30] MEDS: MIRALAX 17 GRAMS PO (08:34)
[2025-03-30] MEDS: COREG 25 MG PO ×2 (08:34→20:46)
[2025-03-30] MEDS: AUGMENTIN 875 MG/125 MG 1 TABLET PO (08:35)
[2025-03-30] MEDS: HEPARIN 5000 UNITS SC ×2 (08:35→20:48)
[2025-03-30 09:42] VITALS: BP 155/70; PULSE 60; O2SAT 98
--- NOTE | 2025-03-30 09:51 | W.PN.HOSP.TC ---
Today's Communication/Plan
-
.
Assessment / Plan
Assessment / Plan
Physical Exam
General: Well Developed, Well Nourished and No Apparent Distress
HEENT: NormoCephalic, Moist mucous membranes and Atraumatic
Respiratory: Clear
Cardiac: S1/S2 and Regular Rhythm; No Murmur or Rub
GI: Soft, Non Distended, obese and Normal Bowel Sounds;
Rectal: No bleeding.
Genito-urinary: No costovertebral tender
Musculoskeletal: No Clubbing, No Cyanosis and No Edema
Skin: No Rash
Neuro: Awake, Alert, Oriented (oriented x 3) and Nonfocal/grossly intact
Psych: Calm
# Klebsiella bacteremia
Clinically he is improved
Receiving IV Zosyn. Stop Augmentin
Repeat blood culture March 30
Await blood culture on admission to finalize
Appreciate ID help
# Acute biliary sepsis/cholangitis POA with fever - without any abdominal pain.
Bilirubin is coming down
Afebrile
No hypotension
No abdominal pain
He is tolerating diet
Blood culture is NGTD
- post EUS and ERCP 03/28/[address] Millan. 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 No abdominal pain, is afebrile, LFTs are trending down
Appreciate GI help
#Right-sided urolithiasis�patient with a 0.7 cm right-sided distal ureteral stone. No hydronephrosis. No flank pain, no CVA tenderness. No dysuria frequency or urgency. UA is without blood, and shows no signs of active infection in the urine.
Per urology:
Given lack of flank pain, hematuria, UTI symptoms, any symptoms consistent with patients prior kidney stones, lack of hydronephrosis on CT, and normal UA, it is very unlikely that patient's ureteral stone contributes to acute infection/fever
- Per family, this stone was also incidentally noted at [place] last month and has not been symptomatic since then
- No indication for acute intervention at this time and can plan for outpatient procedure after discharge if this stone doesn't pass spontaneously
#Diabetes�patient is on Lantus and metformin and Farxiga
Uncontrolled due to holding his medications
� Resume Lantus, Farxiga and metformin
� Sliding scale insulin while n.p.o.
# Chronic HFpEF. patient with recovered EF status post pacemaker AICD
� Continue carvedilol with hold parameters
� Resume Entresto
- check daily weight , order for AM
DVT ppx�lovenox subcu
CODE STATUS�full code
I updated daughter, pt is not dc today due to positive blood culture
Total time spent to see the patient, examine the patient, review data and lab results, discuss treatment plan with patient and his family,GI nursing staff around 57 minutes
Anticipated Discharge: 24 - 48 hours
Subjective/Interval History
-
Date of Service: March 30, 2025
No chest pain
No sob
No fevers
Objective Data
-
Labs:
Laboratory Results
03/30/25
07:33
Sodium 139
Potassium 4.4
Chloride 108 H
Carbon Dioxide 27
BUN 24 H
Creatinine 1.3
Glucose 123 H
Calcium 8.8
Total Bilirubin 1.2
AST 33
ALT 43
Alkaline Phosphatase 227 H
Vital Signs:
Vital Signs
Temp Pulse Resp BP Pulse Ox
97.5 F 61 18 128/56 96
03/30/25 08:33 03/30/25 08:33 03/30/25 08:33 03/30/25 08:33 03/30/25 08:33
I&O
03/29/25 03/30/25 03/31/25
06:59 06:59 06:59
Intake Total 630 / 630 1370 / 1370
Balance 630 / 630 1370 / 1370
--- NOTE | 2025-03-30 10:43 | CM ---
Addendum entered by Cassidy Pyle 03/30/25 11:47:
[facility] made aware of cx discharge. Will follow for new DC needs
Original Note:
Pt now with POS BC. Will not be discharged today. Family aware via DR. Bustamante. Will follow for DCP updates
Plan: DC to home with HH
--- NOTE | 2025-03-30 11:51 | PN.CDI ---
Addendum entered and electronically signed by Kian Bustamante MD 03/30/25 11:56:
Clinically unable to determine��
Original Note:
CDI
- -
CDI:
Physician Documentation Request
Admit Date: 03/27/25 04:[address] Bustamante,
[facility] is using an adapted version of the 2016 Third International Consensus Definitions for Sepsis and Septic Shock (Sepsis-3) where sepsis is defined as life threatening organ dysfunction caused by a deregulated host response to infection.
Please reference the official [facility] Sepsis Recognition Tool for further information, which can be found on the Intranet under Infection Prevention.
Clinical Indicators:
Progress notes include: Acute biliary sepsis/cholangitis POA with fever .... bilirubin is coming down. :
Bilirubin: 03/26 4.2
Based on your medical judgment, can you please clarify whether or not the above organ dysfunction is related to or due to sepsis?
-- Sepsis due to cholangitis with organ dysfunction of hyperbilirubinemia.
-- Sepsis due to cholangitis with organ dysfunction of
-- Other (please specify)
-- Clinically unable to determine��
Use of terms such as suspected, likely, concern for, or probable (associated with a specific diagnosis that is being evaluated, monitored, or treated as if it exists) are acceptable and can be coded in the inpatient setting when documented at the
time of discharge.
Please use your independent medical judgement in providing your response.
Thank you,
Celi Acharya RN, BSN
CDI Specialist
tiger text
[2025-03-30 12:02] LABS: Glucose - Point of Care 144 mg/dl (70-99)
--- NOTE | 2025-03-30 15:55 | PTCARENOTE ---
pt requested a shower, obtained an order from and pt is currently showering, this RN is outside bathroom door
[2025-03-30 15:57] VITALS: BP 153/73
[2025-03-30 17:00] LABS: Glucose - Point of Care 100 mg/dl (70-99)
[2025-03-30] MEDS: LANTUS SC (18:09)
[2025-03-30] MEDS: LANTUS 0.1 UNITS SC (19:06)
[2025-03-30 21:43] LABS: Glucose - Point of Care 102 mg/dl (70-99)
[2025-03-30] MEDS: DESYREL 100 MG PO (21:57)
[2025-03-30 23:29] VITALS: BP 143/67
[2025-03-31] MEDS: ZOSYN 50 IV ×4 (02:24→20:54)
[2025-03-31 06:48] VITALS: BMI 29.2
[2025-03-31 07:30] VITALS: BP 159/70
[2025-03-31 08:21] LABS: Glucose - Point of Care 69 mg/dl (70-99)
[2025-03-31 08:44] LABS: Glucose - Point of Care 84 mg/dl (70-99)
--- NOTE | 2025-03-31 09:16 | W.PN.HOSP.TC ---
Today's Communication/Plan
-
f/w ID recommendations
Assessment / Plan
Assessment / Plan
Physical Exam
General: Well Developed, Well Nourished and No Apparent Distress
HEENT: NormoCephalic, Moist mucous membranes and Atraumatic
Respiratory: Clear
Cardiac: S1/S2 and Regular Rhythm; No Murmur or Rub
GI: Soft, Non Distended, obese and Normal Bowel Sounds;
Rectal: No bleeding.
Genito-urinary: No costovertebral tender
Musculoskeletal: No Clubbing, No Cyanosis and No Edema
Skin: No Rash
Neuro: Awake, Alert, Oriented (oriented x 3) and Nonfocal/grossly intact
Psych: Calm
# Klebsiella bacteremia
Clinically he is improved
Receiving IV Zosyn. Stop Augmentin
Repeat blood culture March 30
Await blood culture on admission to finalize
Appreciate ID help
# Acute biliary sepsis/cholangitis POA with fever - without any abdominal pain.
Bilirubin is coming down
Afebrile
No hypotension
No abdominal pain
He is tolerating diet
Blood culture is NGTD
- post EUS and ERCP 03/28/[address] Millan. 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 No abdominal pain, is afebrile, LFTs are trending down
Appreciate GI help
#Right-sided urolithiasis�patient with a 0.7 cm right-sided distal ureteral stone. No hydronephrosis. No flank pain, no CVA tenderness. No dysuria frequency or urgency. UA is without blood, and shows no signs of active infection in the urine.
Per urology:
Given lack of flank pain, hematuria, UTI symptoms, any symptoms consistent with patients prior kidney stones, lack of hydronephrosis on CT, and normal UA, it is very unlikely that patient's ureteral stone contributes to acute infection/fever
- Per family, this stone was also incidentally noted at [place] last month and has not been symptomatic since then
- No indication for acute intervention at this time and can plan for outpatient procedure after discharge if this stone doesn't pass spontaneously
#Diabetes�patient is on Lantus and metformin and Farxiga
was high but now controlled with low blood glucose at times, will lower Lantus dose.
� Resumed Lantus, Farxiga and metformin
� Sliding scale insulin while n.p.o.
# Chronic HFpEF. patient with recovered EF status post pacemaker AICD
� Continue carvedilol with hold parameters
� Resume Entresto
- check daily weight , order for AM
DVT ppx�lovenox subcu
CODE STATUS�full code
Total time spent to see the patient, examine the patient, review data and lab results, discuss treatment plan with patient and his family, nursing staff around 57 minutes
Anticipated Discharge: 24 - 48 hours
Subjective/Interval History
-
Date of Service: March 31, 2025
No complaints
No abdominal pain
Tolerating diet
Nurse: low BS
Objective Data
-
Vital Signs:
Vital Signs
Temp Pulse Resp BP Pulse Ox
97.8 F 61 16 159/70 96
03/31/25 07:30 03/31/25 07:30 03/31/25 07:30 03/31/25 07:30 03/31/25 07:30
I&O
03/30/25 03/31/25 04/01/25
06:59 06:59 06:59
Intake Total 1370 / 1370 720 / 720
Balance 1370 / 1370 720 / 720
[2025-03-31] MEDS: NOVOLOG FLEXPEN-LOW RESISTANCE SC ×3 (09:18→17:01)
[2025-03-31] MEDS: FARXIGA 10 MG PO (09:19)
[2025-03-31] MEDS: COREG 25 MG PO ×2 (09:19→20:53)
[2025-03-31] MEDS: ENTRESTO 49 MG/51 MG 1 TAB PO ×2 (09:19→20:53)
[2025-03-31] MEDS: GLUCOPHAGE 1000 MG PO ×2 (09:19→17:12)
[2025-03-31] MEDS: CELEXA 20 MG PO (09:20)
[2025-03-31] MEDS: ASPIR LOW (ENTERIC COATED) 81 MG PO (09:20)
[2025-03-31] MEDS: HEPARIN 5000 UNITS SC ×2 (09:20→20:54)
[2025-03-31] MEDS: FLUSH (NSS) 2 FLUSH IV ×2 (09:21→15:42)
[2025-03-31] MEDS: METAMUCIL, KONSYL 1 PACKET PO (09:23)
[2025-03-31 10:46] LABS: Glucose - Point of Care 172 mg/dl (70-99)
[2025-03-31 13:11] LABS: Glucose - Point of Care 77 mg/dl (70-99)
--- NOTE | 2025-03-31 13:48 | CON.ID ---
Consultation
-
Date/Time Consultation Requested: 03/30/25 notified 15:27
Date/Time Consultation Performed: 03/31/25 13:49
Requesting Provider: Dr Bustamante
Performing Provider: Dr Genao
Reason for Consultation: Bacteremia
Chief Complaint / Past History
Chief Complaint
weakness
History of Present Illness
Mr Henriquez is a 79 year old with hx HFrEF with prior AICD/pacer, non ischemic CM, NIDDM with recent admission to [facility] with weakness increased LFT's. During admission noted with multiple imaging studies including MRI with moderate intra and
extrahepatic biliary ductal dilation and main pancreatic ductal dilation without obstructing mass or calculi - recommended ERCP to rule out ampullary mass. Pt was due for OP office visit 03/[address] Witt to discuss ERCP. However he
developed fever 103.5 03/27 and weakness with now admission to [facility]. On admission noted with WBC 6.9 and a L shift, bili 2.4, d bili 1.7, GGT 759, AST 102, ALT 91, alk phos 268, albumin 3.1, hbg 12.6, platelets 437. blood cultures x2 done and
one set with K pneumoniae CT completed 'with prior christine and mild prominence of bile duct with CBD 1.4 cm as well as mild dilation of the main pancreatic duct measuring up to 6 mm in the pancreatic head. No definite lesion is identified. Consider
MRCP for further evaluation and correlation with lab values to exclude obstruction. Also noted 7 mm stone distal ureter with hydro and small b/l non obstructing stones, diverticulosis.' No dysuria frequency or urgency. UA no pyuria
In review with patient he admits to fever and weakness with recent fall. He has been eating but states wt loss of ab out 15 lbs with recent admission. He also notes some change in stool color but denies odynophagia, dysphagia, GERD, nausea,
vomiting, abdominal pain, diarrhea, constipation, dark urine, blood or black in stools. No prior EGD and hx colonoscopy several years ago. Pt denies anticoagulation and admits to NSAID use every several days.
03/08/25- ([facility])bili 1.9,. AST 98, ALT 84, alk phos 45, WBC 6.1, hbg 11.1, hct 32, platelets 291
03/07/25 CT A/P without contrast ( [facility])- non obstructing upper urinary tract calculi
02/28/25- CT cervical spine ([facility]) no acute fracture or subluxation, 1.9cm solid left thyroid nodule
02/28/25- HCT ([facility]) no acute abnormality
03/07/25 MRI with and without ([facility])- moderate intra and extrahepatic biliary ductal dilation and main pancreatic ductal dilation without obstructing mass or calculi recommended ERCP to rule out ampullary mass
03/26/25 CT a/p completed with prior christine and mild prominence of bile duct with CBD 1.4 cm as well as mild dilation of the main pancreatic duct measuring up to 6 mm in the pancreatic head. No definite lesion is identified. Consider MRCP for
further evaluation and correlation with lab values to exclude obstruction. Also noted 7 mm stone distal ureter with hydro and small b/l non obstructing stones, diverticulosis.
Since arrival here he was initially febrile to 103.5, now afebrile several days, he underwent ERCP on 03/28 for stone and sludge removal and had a plastic stent placed in the common bile duct. T bili today1.2, ast 33, alt 43, alk phos 227, a single
set of repeat blood cultures was done 03/30 and remains no growth at 24 hours. Patient has been on zosyn since 03/26 and did have a single dose of augmentin 03/30
Past History
Additional Past Medical History:
CHF (HFrEF with AICD/pacer and recovery of EF), NIDDM and Other (non ischemic CM, renal stones )
Additional Past Surgical History:
Appendectomy, Cardiac (AICD/pacer) and Tonsilectomy
Allergy History:
No Known Allergies Allergy (Unverified 03/29/25 07:11)
Medications Reviewed: Yes
Social History
Tobacco: Non-Smoker
Alcohol: Occasional
Drug: None
Family History
Family History: Not Pertinent
Review of Systems
Review of Systems
Constitutional: Reports Fever, Weight Loss and Fatigue
EENT: Reports No Symptoms
Respiratory: Reports No Symptoms
Cardiac: Reports No Symptoms
Abdomen/GI: Reports Other (change in stool color )
: Reports No Symptoms
Musculoskeletal: Reports No Symptoms
Neurological: Reports Weakness
Endocrine: Reports No Symptoms
Hematologic/Lymphatic: Reports No Symptoms
Vital Signs
Temp Pulse Resp BP Pulse Ox
97.8 F 61 16 159/70 96
03/31/25 07:30 03/31/25 09:19 03/31/25 07:30 03/31/25 09:19 03/31/25 07:30
Physical Exam
Physical Exam
Constitutional: No Acute Distress
Cardiovascular: Regular Rate and S1/S2; Negative Murmur or Rub
Pulmonary: Clear and Symmetric; Negative Wheezes, Rales or Rhonchi
Gastrointestinal: Soft, Non Tender, Non Distended and Normal Bowel Sounds
Skin: Warm and Dry; Negative Rash or Jaundice
Lab / Diagnostic Study Results
03/29/25 06:48
03/30/25 07:33
Abs Immat Gran (auto) 0.0 10^3/uL (0-0.05) 03/26/25 19:17
Absolute Neuts (auto) 6.2 10^3/uL (1.4-6.5) 03/26/25 19:17
Absolute Lymphs (auto) 0.3 10^3/uL (1.2-3.4) L 03/26/25 19:17
Absolute Monos (auto) 0.4 10^3/uL (0.1-0.6) 03/26/25 19:17
Absolute Basos (auto) 0.0 10^3/uL (0-0.2) 03/26/25 19:17
Immature Gran % 0.1 % (0-0.5) 03/26/25 19:17
Neutrophils % 89.4 % (42.2-75.2) H 03/26/25 19:17
Lymphocytes % 4.1 % (20.5-51.1) L 03/26/25 19:17
Monocytes % 5.1 % (1.7-9.3) 03/26/25 19:17
Eosinophils % 1.0 % (0-6) 03/26/25 19:17
Basophils % 0.3 % (0-2) 03/26/25 19:17
PT 16.0 Sec (11.4-14.6) H 03/28/25 08:20
INR 1.26 03/28/25 08:20
Lactic Acid Cancelled 03/26/25 23:15
Ur Squamous Epith Cells 3-5 /LPF (Few) 03/27/25 01:16
Microbiology Results
Micro:
03/30/25 09:57 Blood Culture - Preliminary
Blood/Venous No Growth in 24 hours- Final report to follow
03/26/25 20:14 Blood Culture - Preliminary
Blood/Venous Klebsiella pneumoniae group
Gram Stain - Preliminary
03/26/25 19:17 Blood Culture - Preliminary
Blood/Venous No Growth in 4 days- Final report to follow
03/26/25 19:17 Influenza Types A & B ([facility]) - Final
Nasal Swab Negative for Influenza A & B, NAAT
Negative results must be combined with clinical observations
and patient history.
Nucleic Acid Amplification test (NAAT)performed on the
[employer] platform.
Assessment / Plan
Cholangitis
Klebsiella pneumoniae bacteremia d/t cholangitis
biliary sludge/stone
asymptomatic, nonobstructing renal stone
Dm2
- repeat blood cultures not needed for gram negative with known source
- 03/26 blood culture took 4 days to result - implies low level bacteremia
- augmentin is a reasonable empiric choice if dc is desired before sensitives result - 7 day course recommended for gram negative bacteremia 03/27-04/02
- fine to continue zosyn for today day 5 of 7
[2025-03-31 15:17] VITALS: BP 151/69
[2025-03-31 16:40] LABS: Glucose - Point of Care 72 mg/dl (70-99)
[2025-03-31] MEDS: DESYREL 100 MG PO (21:13)
[2025-03-31 21:32] LABS: Glucose - Point of Care 93 mg/dl (70-99)
[2025-03-31 23:40] VITALS: BP 154/74
[2025-04-01] MEDS: ZOSYN 50 IV ×2 (02:57→08:27)
[2025-04-01 03:03] LABS: Glucose - Point of Care 102 mg/dl (70-99)
[2025-04-01 05:56] VITALS: BMI 29.2
[2025-04-01 07:20] VITALS: BP 151/74
[2025-04-01 07:41] LABS: Glucose - Point of Care 94 mg/dl (70-99)
[2025-04-01] MEDS: NOVOLOG FLEXPEN-LOW RESISTANCE SC (07:45)
[2025-04-01] MEDS: GLUCOPHAGE 1000 MG PO (08:26)
[2025-04-01] MEDS: ENTRESTO 49 MG/51 MG 1 TAB PO (08:26)
[2025-04-01] MEDS: FARXIGA 10 MG PO (08:26)
[2025-04-01] MEDS: CELEXA 20 MG PO (08:27)
[2025-04-01] MEDS: COREG 25 MG PO (08:27)
[2025-04-01] MEDS: HEPARIN 5000 UNITS SC (08:27)
[2025-04-01] MEDS: ASPIR LOW (ENTERIC COATED) 81 MG PO (08:27)
[2025-04-01] MEDS: METAMUCIL, KONSYL PO ×2 (08:28→08:31)
[2025-04-01 09:44] VITALS: BP 136/78; PULSE 60; O2SAT 99
--- NOTE | 2025-04-01 09:49 | W.PN.HOSP.TC ---
Today's Communication/Plan
-
Discharge
Assessment / Plan
Assessment / Plan
Physical Exam
General: Well Developed, Well Nourished and No Apparent Distress
HEENT: NormoCephalic, Moist mucous membranes and Atraumatic
Respiratory: Clear
Cardiac: S1/S2 and Regular Rhythm; No Murmur or Rub
GI: Soft, Non Distended, obese and Normal Bowel Sounds;
Rectal: No bleeding.
Genito-urinary: No costovertebral tender
Musculoskeletal: No Clubbing, No Cyanosis and No Edema
Skin: No Rash
Neuro: Awake, Alert, Oriented (oriented x 3) and Nonfocal/grossly intact
Psych: Calm
# Klebsiella bacteremia
Clinically he is improved, back to baseline
Status post IV Zosyn.
Repeat blood culture, no growth
Repeat blood culture March 30
Appreciate ID help discharge on Augmentin.
# Acute biliary sepsis/cholangitis POA with fever - without any abdominal pain.
Bilirubin is coming down
Afebrile
No hypotension
No abdominal pain
He is tolerating diet
- post EUS and ERCP 03/28/[address] Millan. 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 No abdominal pain, is afebrile, LFTs are trending down
Appreciate GI help
#Right-sided urolithiasis�patient with a 0.7 cm right-sided distal ureteral stone. No hydronephrosis. No flank pain, no CVA tenderness. No dysuria frequency or urgency. UA is without blood, and shows no signs of active infection in the urine.
Per urology:
Given lack of flank pain, hematuria, UTI symptoms, any symptoms consistent with patients prior kidney stones, lack of hydronephrosis on CT, and normal UA, it is very unlikely that patient's ureteral stone contributes to acute infection/fever
- Per family, this stone was also incidentally noted at [facility] last month and has not been symptomatic since then
- No indication for acute intervention at this time and can plan for outpatient procedure after discharge if this stone doesn't pass spontaneously
#Diabetes�patient is on Lantus and metformin and Farxiga
was high but now controlled with low blood glucose at times, will lower Lantus dose.
� Resumed Lantus, Farxiga and metformin
� Sliding scale insulin while n.p.o.
# Chronic HFpEF. patient with recovered EF status post pacemaker AICD
� Continue carvedilol with hold parameters
� Resumed Entresto
stable weight
DVT ppx�lovenox subcu
CODE STATUS�full code
Total t discharge eva spent to see the patient, examine the patient, review data and lab results, discuss dischargem plan with patient and his family, nursing staff around 65 minutes
Anticipated Discharge: Today
Subjective/Interval History
-
Date of Service: April 01, 2025
No complaints. No abdominal pain. No constipation. Had normal bowel movement. No nausea. Tolerated diet well. Agrees to discharge
Objective Data
-
Vital Signs:
Vital Signs
Temp Pulse Resp BP Pulse Ox
98.3 F 61 18 170/82 98
04/01/25 07:20 04/01/25 08:26 04/01/25 07:20 04/01/25 08:26 04/01/25 07:20
I&O
03/31/25 04/01/25 04/02/25
06:59 06:59 06:59
Intake Total 720 / 720 920 / 920 50 / 50
Balance 720 / 720 920 / 920 50 / 50
--- NOTE | 2025-04-01 10:22 | CM ---
MD entered order for discharge.
Spoke with Moiz [facility] pt accepted for VN .
Spoke with dgt Alejandrina [phone] drive patient home.
IMM reviewed agreed with dc today.
Discharged on po antibiotics.
PLAN Home with Maira [facility] fax [phone]
[2025-04-01 10:45] VITALS: BP 169/80
--- NOTE | 2025-04-01 11:36 | W.DCSUMMARY ---
Discharge Summary
Discharge Data
Date of Admission: 03/26/25
Date of Discharge: 04/01/25
-
Pending Results: No
Hospital Course
79 years old male with recent admission to [facility] with weakness increased LFT's. During that admission, he had multiple imaging studies including MRI with moderate intra and extrahepatic biliary ductal dilation and main pancreatic ductal
dilation without obstructing mass or calculi recommended ERCP to rule out ampullary mass. Patient was due for OP office visit 03/[address] Witt to discuss ERCP. Patient presented with chills, fever and weakness. Scan of the abdomen and
pelvis showed mild prominence of the bile ducts with the common bile duct measuring 1.4 cm as well as mild dilation of the main pancreatic duct measuring up to 6 mm in the pancreatic head with 7 mm stone within the distal right ureter without
associated hydronephrosis, small bilateral nonobstructing stones. Patient was evaluated by GI. He was started on intravenous antibiotics. He had ERCP 03/28/[address] Millan. s/p Sphincterotomy with stone extraction and stent to right hepatic
duct and also biopsies of ampullary lesion were taken. Patient did not have abdominal pain. He remained afebrile and liver function test started to come down. He was started on diet with good tolerance. He was seen by urology and recommended
outpatient follow-up. Blood culture showed positive Klebsiella pneumonia. He was evaluated by infectious disease doctor. He received several doses of IV antibiotic and was discharged on oral antibiotic Augmentin to finish course of treatment.
Patient remained hemodynamically stable. He was able to ambulate without distress. He was evaluated by comp field case manager and physical therapy. He was discharged home in a stable condition with home care services.
Discharge Plan
-
Patient Disposition: Home (Routine Discharge)
Discharge Diagnosis/Procedures: Cholangitis
Klebsiella pneumoniae bacteremia due to acute cholangitis
biliary sludge/stone
asymptomatic, nonobstructing renal stone
Diabetes : We reduced the dose of Lantus due to lower blood glucose level. Please check your blood glucose because you might need to go back on higher dose and follow-up with your primary care doctor.
Diet: As tolerated, Low Fat and Diabetic, Carb Controlled
Activity Restrictions/Additional Instructions:
Right-sided urolithiasis-will need urology input.
Referrals:
Darek Ferro DO [Family Provider, Family Practice] - in one to two weeks
Fausto Millan MD [Active, Gastroenterology] - in one to two months
Prescriptions:
New
amoxicillin-pot clavulanate 875-125 mg tablet
1 tab PO BID Qty: 5 0RF
Continued
carvedilol 25 mg Tablet
25 mg PO Q12H
citalopram 40 mg Tablet
20 mg PO DAILY
trazodone 100 mg Tablet
100 mg PO HS
metformin 1,000 mg Tablet
1,000 mg PO BID
aspirin 81 mg Tablet
81 mg PO DAILY
fenofibrate 160 mg Tablet
160 mg PO DAILY
cholecalciferol (vitamin D3) [Vitamin D3] 50 mcg (2,000 unit) Tablet
50 mcg PO DAILY
omega [id number]-fish oil [Fish Oil] 1,000 (120-180) mg Capsule
1 cap PO DAILY
dapagliflozin propanediol [Farxiga] 10 mg Tablet
10 mg PO DAILY
sacubitril-valsartan [Entresto] 49-51 mg Tablet
1 tab PO BID
Centrum MultiGummies Men 80 mcg Tablet,Chewable
1 tab PO DAILY
Changed
insulin glargine [Lantus U-100 Insulin] 100 unit/mL Solution
20 unit SC HS Qty: 0 0RF
Discharge Orders:
Discharge Patient (As Directed); Ordered 04/01/25
Ordered By: Kian Bustamante
Discharge Date and Time
Discharge Date/Time: 04/01/25 11:55
Print Language: ESTONIAN
== END 2025-04-01 11:55 | disposition home health service (06) | DRG 445 ==
LOC: 4 EAST ACU 04:36
PROVIDERS: Hospitalist; Internal Medicine Gastroenterology; Nurse Practitioner Adult Health; Physician Assistant; ADMITTING PHYSICIAN Internal Medicine; ATTENDING PHYSICIAN Internal Medicine; CONSULT PHYSICIAN Student in an Organized Health Care Education/Training Program; CONSULT PHYSICIAN Urology; EMERGENCY PHYSICIAN Emergency Medicine; FAMILY PHYSICIAN Family Medicine; OTHER PHYSICIAN Student in an Organized Health Care Education/Training Program
PROC: 0F758DZ Dilation of Right Hepatic Duct with Intraluminal Device, Via Natural or Artificial Opening Endoscopic (ICD-10-PCS; 2025-03-28)
PROC: 0FC58ZZ Extirpation of Matter from Right Hepatic Duct, Via Natural or Artificial Opening Endoscopic (ICD-10-PCS; 2025-03-28)
PROC: BF101ZZ Fluoroscopy of Bile Ducts using Low Osmolar Contrast (ICD-10-PCS; 2025-03-28)
PROC: 0FBC8ZX Excision of Ampulla of Vater, Via Natural or Artificial Opening Endoscopic, Diagnostic (ICD-10-PCS; 2025-03-28)
PROC: 0DB68ZX Excision of Stomach, Via Natural or Artificial Opening Endoscopic, Diagnostic (ICD-10-PCS; 2025-03-28)
DX: K80.30 Calculus of bile duct with cholangitis, unspecified, without obstruction (principal); I42.8 Other cardiomyopathies; R17 Unspecified jaundice; N20.2 Calculus of kidney with calculus of ureter; I50.32 Chronic diastolic (congestive) heart failure; R78.81 Bacteremia; R74.01 Elevation of levels of liver transaminase levels; K26.9 Duodenal ulcer, unspecified as acute or chronic, without hemorrhage or perforation; R74.8 Abnormal levels of other serum enzymes; D13.5 Benign neoplasm of extrahepatic bile ducts; K57.30 Diverticulosis of large intestine without perforation or abscess without bleeding; B96.1 Klebsiella pneumoniae [K. pneumoniae] as the cause of diseases classified elsewhere; K86.89 Other specified diseases of pancreas; E11.9 Type 2 diabetes mellitus without complications; Z95.810 Presence of automatic (implantable) cardiac defibrillator; Z87.442 Personal history of urinary calculi; Z90.49 Acquired absence of other specified parts of digestive tract; Z88.0 Allergy status to penicillin; Z79.4 Long term (current) use of insulin; Z79.82 Long term (current) use of aspirin; Z79.899 Other long term (current) drug therapy; Z79.84 Long term (current) use of oral hypoglycemic drugs; Z11.52 Encounter for screening for COVID-19
CPT/HCPCS: 71045; 74177; 74330; 76000; 80048; 80053; 80076; 81003; 81015; 82248; 82962; 82977; 83605; 83690; 83735; 85025; 85027; 85610; 87040; 87077; 87154; 87186; 87205; 87502; 87811; 88305; 88342; 93005; 96361; 96365; 97116; 97162; 97166; 99285; C1769; C2617; Q9967